=== PATIENT | female | born 1935 | race American Indian/Alaskan Native ===

== ENCOUNTER 2017-09-07 10:59 | Emergency (ER) | payer MEDICARE ==
[2017-09-07 11:09] VITALS: BP 133/71
--- NOTE | 2017-09-07 14:51 | Emergency Department Report ---
ED Extremity Problem HPI - General Chief complaint: Extremity Injury, Lower Stated complaint: BILATERAL LOWER LEG PAIN Time Seen by Provider: 09/07/17 14:41 Source: patient Mode of arrival: Ambulatory Limitations: No Limitations - History of Present Illness Initial comments: Patient is a 81-year-old female who is complaining of some bilateral ankle pain. Patient states the right is slightly worse than the left. Patient does have a history arthritis. Patient states this is been aching her for approximately 1 month. Patient states pain is 7 out of 10 in severity. Patient states is worse when she is walking. Patient denies any swelling to the calfs no recent travel of chest pain shortness of breath fevers or chills at this time. - Related Data Previous Rx's Medication Instructions Recorded Last Taken Type traMADol [Ultram] 50 mg PO Q6HR PRN #12 tablet 09/07/17 Unknown Rx Allergies Allergy/AdvReac Type Severity Reaction Status Date / Time Penicillins Allergy Hives Verified 09/07/17 11:04 ED Review of Systems ROS: Stated complaint: BILATERAL LOWER LEG PAIN Other details as noted in HPI Comment: All other systems reviewed and negative ED Past Medical Hx - Past Medical History Hx Hypertension: Yes - Surgical History Additional Surgical History: HYSTO/ THYROID SURGERY/ FOOT - Social History Smoking Status: Never Smoker Substance Use Type: Alcohol - Medications Home Medications: Home Medications Medication Instructions Recorded Confirmed Last Taken Type traMADol [Ultram] 50 mg PO Q6HR PRN #12 tablet 09/07/17 Unknown Rx ED Physical Exam - General Limitations: No Limitations General appearance: alert, in no apparent distress - Head Head exam: Present: atraumatic, normocephalic - Eye Eye exam: Present: normal appearance - ENT ENT exam: Present: mucous membranes moist - Neck Neck exam: Present: normal inspection - Respiratory Respiratory exam: Present: normal lung sounds bilaterally. Absent: respiratory distress - Cardiovascular Cardiovascular Exam: Present: regular rate, normal rhythm. Absent: systolic murmur, diastolic murmur, rubs, gallop - GI/Abdominal GI/Abdominal exam: Present: soft, normal bowel sounds - Extremities Exam Extremities exam: Present: normal inspection, other (bilateral ankles appear within normal limits. Patient has strong her DP pulse in bilateral feet. Patient's has no warmth or erythema or pitting edema. There is no calf tenderness. Patient does have some mild crepitus with range of motion of her bilateral ankles.) - Back Exam Back exam: Present: normal inspection - Neurological Exam Neurological exam: Present: alert, oriented X3 - Psychiatric Psychiatric exam: Present: normal affect, normal mood - Skin Skin exam: Present: warm, dry, intact, normal color. Absent: rash ED Course Vital Signs 09/07/17 11:04 Temperature 98.2 F Pulse Rate 67 Respiratory 18 Rate Blood Pressure 133/71 O2 Sat by Pulse 96 Oximetry ED Medical Decision Making - Medical Decision Making Patient will be referred to orthopedics for arthralgias. Patient started on Ultram for pain and patient will be discharged home at this time. Critical care attestation.: If time is entered above; I have spent that time in minutes in the direct care of this critically ill patient, excluding procedure time. ED Disposition Clinical Impression: Arthralgia Qualifiers: Joint pain location: ankle Laterality: bilateral Qualified Code(s): M25.571 - Pain in right ankle and joints of right foot; M25.572 - Pain in left ankle and joints of left foot Disposition: DC- TO HOME OR SELFCARE Is pt being admited?: No Does the pt Need Aspirin: No Condition: Stable Instructions: Osteoarthritis (ED) Prescriptions: traMADol [Ultram] 50 mg PO Q6HR PRN #12 tablet PRN Reason: Pain Referrals: JAZMINE DAILY MD [Primary Care Provider] - 3-5 Days
[2017-09-07] MEDS ORDERED: LET TOPICAL TP ONE (15:07)
== END 2017-09-07 15:00 | disposition home or self-care (01) ==
LOC: ED 10:59
DX: M25.571 Pain in right ankle and joints of right foot (principal); M25.572 Pain in left ankle and joints of left foot; M19.90 Unspecified osteoarthritis, unspecified site; I10 Essential (primary) hypertension; Z88.0 Allergy status to penicillin
CPT/HCPCS: 99282